=== PATIENT | male | born 1975 | race Asian ===

== ENCOUNTER 2019-03-06 13:27 | Emergency (ER) | payer OTHER ==
[~2019-03-06] VITALS: Ht 160 cm; Wt 71.1 kg
[2019-03-06 15:31] VITALS: BP 126/84
--- NOTE | 2019-03-06 15:34 | NUR ---
FROM LOBBY TO ROOM. PT PRESENTING TO ER FOR BLISTERING RASH ACROSS ENTIRE BODY X2 WEEKS, INITIALLY ITCHY NOW PAINFUL AND SPREADING LAST 2 DAYS. ALSO REPORTING FEVER/CHILLS, BODY AND JOINT PAIN WITH BILATERAL FLANK PAIN AND PAINFUL URINATION. CONNECTED TO MONITORING, VSS. UA COLLECTED AND SENT TO LAB. PA AT BEDSIDE FOR ASSESSMENT, AWAITING FURTHER ORDERS AT THIS TIME. FAMILY AT BEDSIDE. CALL LIGHT WITHIN REACH.
[2019-03-06 15:55] LABS: MICROSCOPIC INDICATED
[2019-03-06] MEDS ORDERED: DIPHENHYDRAMINE 25 MG CAPSULE PO ONE (16:00)
--- NOTE | 2019-03-06 16:07 | NUR ---
REPORT GIVEN TO KOSTA BOWLES
[2019-03-06 16:09] LABS: CULTURE INDICATED? NO
[2019-03-06] MEDS ORDERED: DIPHENHYDRAMINE 25 MG CAPSULE ONE (16:10)
[2019-03-06] MEDS ORDERED: OMEPRAZOLE 20 MG CAPSULE.DR ONE (16:10)
--- NOTE | 2019-03-06 17:18 | NUR ---
ASSIST PRIMARY WITH DISCHARGE. PT DISCHARGED HOME, ALL QUESTIONS ANSWERED.
== END 2019-03-06 17:19 | disposition home or self-care (01) ==
LOC: ED 16:50
DX: R21 Rash and other nonspecific skin eruption (principal); R30.0 Dysuria
CPT/HCPCS: 36415; 81001; 86592; 99283; J7512; Q0163